=== PATIENT | female | born 1955 | race African-American/Black ===

== ENCOUNTER 2017-04-20 13:09 | Outpatient (CLI) | payer MEDICARE, OTHER ==
--- NOTE | 2017-04-20 15:58 | Diagnostic Imaging Report ---
Indication: Severe low back pain x1-1/2 weeks Technique: Sagittal T1 and T2 fast spin echo, sagittal STIR, axial T1 and T2 fast spin-echo images of the lumbar spine Comparison: 06/13/2014 Findings: This bony alignment is normal. Vertebral body heights are preserved. The vertebral body marrow signal is normal. The disc spaces are preserved. The conus medullaris terminates at the L1 level. No acute fractures. At L3-4, there is very mild circumferential annular bulge. In combination with abundant posterior epidural fat, this results in minimal narrowing of the thecal sac. There is also facet hypertrophy at this level. At L4-5, there is minimal circumferential annular bulge. However, the disc bulge, abundant epidural fat, and short pedicles and facet hypertrophy combined to result in mild narrowing of the thecal sac at this level At L5-S1, there is broad-based posterior disc protrusion. Although the spinal canal itself is not significantly narrowed by this, there are is abundant epidural lipomatosis at this level which results in considerable narrowing of the thecal sac. The lipomatosis extends throughout the entirety of the sacral spinal canal. There is a 4.2 cm left renal cyst incidentally noted. Impression: Circumferential annular bulge at L4-5. This, in combination with prominent epidural fat results in mild Epidural lipomatosis at and below L5-S1. This, in combination with broad-based posterior disc protrusion at L5-S1 results in narrowing the spinal canal. This can be symptomatic, although rarely No acute bony trauma Incidental finding 4.2 cm left renal cyst
== END 2017-04-20 15:09 | disposition home or self-care (01) ==
LOC: MRI 13:09
DX: M54.9 Dorsalgia, unspecified (principal); N28.1 Cyst of kidney, acquired
CPT/HCPCS: 72148

== ENCOUNTER 2017-11-26 11:51 | Outpatient (CLI) | payer MEDICARE, OTHER ==
--- NOTE | 2017-11-27 09:40 | Diagnostic Imaging Report ---
Indication: 62-year-old female with history of trigger thumb, recent injection into right thumb causing swelling and pain Technique: Axial T1, axial proton-density fat-saturated, axial T2 fat saturated, coronal STIR, coronal T1, sagittal T1, sagittal T2 fat saturated, coronal proton-density fat-saturated images obtained of the right hand Comparison: none Findings: There is increased T2 signal circumferentially surrounding the first digit, extending slightly into the dorsum of the distal hand. Increased T2 signal also tracks more proximally along the flexor tendon of the first digit. No discrete fluid collections are evident. No abnormal bone marrow signal demonstrated. There is also slight increased T2 signal in the subcutaneous fat of the medial aspect of the hand, superficial to the fifth metacarpal and fifth metacarpal phalangeal joint and extending slightly into the dorsal fourth webspace. No evidence of significant tendinopathy. No osseous erosions. Impression: Increased soft tissue T2 signal surrounding the first digit and extending into the dorsum of the distal hand. This is nonspecific, but given the stated clinical history likely reflects cellulitis Increased T2 signal surrounding the first digit flexor tendon. This could represent extension of cellulitis or could indicate inflammation of the tendon sheath. Minimal edema of the medial subcutaneous fat, as described. Nonspecific, could indicate cellulitis. Correlate with clinical findings No evidence of osteomyelitis or drainable abscess
== END 2017-11-26 13:51 | disposition home or self-care (01) ==
LOC: MRI 11:51
DX: M25.541 Pain in joints of right hand (principal); R60.0 Localized edema